=== PATIENT | female | born 1940 | race Caucasian/White ===

== ENCOUNTER 2017-01-06 09:37 | Outpatient (CLI) ==
[2016-10-05 16:26] VITALS: BMI 38.2
[2017-01-06] MEDS ORDERED: PROLIA SUBCUT STA (09:44)
[2017-01-06 09:51] VITALS: BP 163/83; TEMP 98.3
== END 2017-01-06 09:38 | disposition home or self-care (01) ==
LOC: OUTPT 09:37
PROVIDERS: ATTEND Family Medicine
DX: M81.0 Age-related osteoporosis without current pathological fracture (principal); Z78.0 Asymptomatic menopausal state
CPT/HCPCS: 96372

== ENCOUNTER 2017-02-10 08:10 | Outpatient (CLI) ==
[2016-10-05 16:26] VITALS: BMI 38.2
--- NOTE | 2017-02-10 09:18 | DEXA ---
EXAM: Bone Densitometry DEXA HISTORY: Osteoporosis COMPARISON: None FINDINGS: DEXA scan of the lumbar spine was performed. Quality of the study is good. Bone mineral density is 0.936 grams per square centimeter. T-score is negative 2.0. Z-score is negative 1.4. T-score L1 ve rtebral body is negative 3.4 and T score L2 vertebral body is negative 3.2 DEXA scan right and left hip was performed. Quality of the study is good. Bone mineral density alexandra n total is 0.908 grams per square centimeter. T-score is negative 0.8. Z-score is 0.1. Bone minera l density of the femoral neck mean is 0.828 with a T score of negative 1.5 and a Z score of negative 0.3. IMPRESSION: 1. Lumbar spine: Osteopenia. L1 and L2 vertebral bodies demonstrate osteoporosis 2. Right and left hip: Normal bone marrow density 3. Right and left femoral neck: Osteopenia 4. 10 year risk for major osteoporotic fracture is 17.4% and for hip fracture is 3.7%. Reference Values according to World Health Organization criteria: T score greater than -1 is normal T score -1 to -2.5 is osteopenia T score less than -2.5 is osteoporosis.
== END 2017-02-10 08:11 | disposition home or self-care (01) ==
LOC: RAD 08:10
PROVIDERS: ATTEND Family Medicine
DX: M81.0 Age-related osteoporosis without current pathological fracture (principal)

== ENCOUNTER 2018-03-05 09:13 | Outpatient (CLI) ==
[2016-10-05 16:26] VITALS: BMI 38.2
[2018-03-05] MEDS ORDERED: PROLIA SUBCUT STA (09:29)
[2018-03-05 09:33] VITALS: BP 150/86; TEMP 97.2
== END 2018-03-05 09:14 | disposition home or self-care (01) ==
LOC: OPMED 09:13
PROVIDERS: ATTEND Family Medicine
DX: M81.0 Age-related osteoporosis without current pathological fracture (principal)
CPT/HCPCS: 96372

== ENCOUNTER 2018-05-10 07:28 | Day surgery (SDC) | payer OTHER ==
[2016-10-05 16:26] VITALS: BMI 38.2
[2018-05-10] MEDS ORDERED: VERSED ONE (10:10)
[2018-05-10] MEDS ORDERED: DIPRIVAN 20 ML VIAL IVP ONE (10:10)
[2018-05-10 13:49] VITALS: BP 146/83; TEMP 97.4
--- NOTE | 2018-05-11 09:15 | OP ---
PROCEDURE: COLONOSCOPY TO THE CECUM. ENDOSCOPIST: Vinnie CRUZ M.D. INDICATION: HISTORY OF POLYPS INSTRUMENT: [employer]-[id number]. MEDICATION: PER ANESTHESIA. PROCEDURE: The patient was positioned for colonoscopy. The digital rectal exam was negative. The colonoscope was inserted through the anus and advanced to the cecum. The cecum was identified using the ileocecal valve and the appendiceal orifice as landmarks. The scope was slowly withdrawn through an adequately prepped colon. Selma Bowel Prep Score =9. Exam was essentially normal throughout. No evidence for polyp of mass. Retroflex exam was normal. Withdraw time 9 minutes and 10 seconds. PLAN: 1. Suggest repeat colonoscopy in 5 years. CC: Dr. Stout. VIKY
== END 2018-05-10 11:15 | disposition home or self-care (01) ==
LOC: SURG 07:28
PROVIDERS: ATTEND Internal Medicine Gastroenterology
DX: Z86.010 Personal history of colon polyps (principal)

== ENCOUNTER 2018-08-13 08:59 | Outpatient (CLI) | payer OTHER ==
[2016-10-05 16:26] VITALS: BMI 38.2
--- NOTE | 2018-08-14 10:56 | MRI ---
EXAM: Lumbar spine MRI without contrast. HISTORY: Acute midline low back pain without sciatica. COMPARISON: Lumbar spine CT scan 01/24/[address] abdomen and pelvis 05/08/2013. TECHNIQUE: Multiplanar, multisequence MR images were acquired of the lumbar spine without contrast. The study is degraded by lack of spatial and contrast resolution due to decreased [id number]. FINDINGS: Transitional spinal anatomy is present. Six non-rib bearing lumbar type vertebra are pres ent and these are numbered L1-L6. No comparison chest radiographs are available to allow counting of numbers of ribs. Conus medullaris ends at conus medullaris ends at L2-3 and has normal morphology a nd signal intensity. Canal diameter is developmentally narrow and there is epidural lipomatosis. Th ere is mild lumbar scoliosis, convex right at L3-4 and convex left at L5-6. There is a mild to moder ate chronic left anterior wedge compression deformity of L2 with biconcave endplates and there is mil d dorsal hypoplasia of the L5 and L6 vertebra. There is 2 mm degenerative anterolisthesis of L5 on S 1. Intrinsic bone marrow signal is normal. Benign intraosseous hemangiomas are present at L3, L4 an d L5. Small ventral and lateral osteophytes are present in the lumbar spine and there is desiccation of the intervertebral discs. The partially visualized liver, spleen, adrenal glands and kidneys are unremarkable. L1-2: There is a minor disc bulge and on the sagittal images there is a probable small central disc protrusion and annular tear that is not seen on the axial images. There is no central canal stenosis . Neural foramina are patent. L2-3: There is mild to moderate chronic left anterior wedging of L3 with 1 mm retropulsion of the L3 posterior superior cortex and the L2-3 intervertebral disc. This produces a minor disc bulge that m inimally effaces the thecal sac without central canal stenosis. Neural foramina are patent. L3-4: There is a diffuse disc bulge and a small right paracentral disc extrusion with inferior migra tion that narrows the right lateral recess and may adversely contact the right L4 nerve roots. Mild bilateral hypertrophic facet arthropathy and ligamentum flavum hypertrophy and prominent dorsal epidu ral fat is present. This causes moderate central canal stenosis and mild to moderate left and mild r ight neural foraminal stenosis. AP diameter of the thecal sac is 5.5 mm. L4-5: There is a diffuse disc bulge that is asymmetric to the left with a tiny central disc protrusi on. Minor bilateral facet arthropathy and mild ligamentum flavum hypertrophy is present. There is p rominent dorsal epidural fat and there is mild narrowing of the thecal sac and minor bilateral forami nal stenosis. AP diameter of the thecal sac is 6.6 mm. L5-6: There is a mild disc bulge that is asymmetric to the right which may encroach on the right L5 nerve exiting the neural foramen. There is a poorly visualized small broad-based central disc protru ewa, prominent dorsal epidural fat and mild left and moderate right hypertrophic facet arthropathy a nd moderate bilateral ligamentum flavum hypertrophy. There is tapering of the thecal sac at this lev el and the thecal sac is small and measures 3.4 mm in AP diameter. There is mild right and minor lef t neural foraminal stenosis. L6-S1: There is moderate tapering of the thecal sac at the mid L6 level due to epidural lipomatosis and the thecal sac ends at the top of S1. Moderate bilateral hypertrophic facet arthropathy and ligam entum flavum hypertrophy is present. There is a small left facet effusion. There is no central estrella l stenosis or foraminal stenosis. IMPRESSION: 1. Mild lumbar scoliosis, convex right and L3-4 and convex left at L5-6. 2. Moderate lumbar degenerative spondylosis and lower lumbar hypertrophic facet arthropathy. 3. Mild to moderate chronic left anterior wedge compression deformity L3. No acute compression frac tures. 4. Mild L4-5 and moderate L3-4 central canal stenosis and small thecal sac at L5-6 and L6, S1 due to tapering of the thecal sac and epidural lipomatosis. 5. Small right paracentral disc extrusion L3-4, tiny central disc protrusion L4-5 and a small broad- based central disc protrusion L5-6. 6. Six non-rib bearing lumbar type vertebra are present.
== END 2018-08-13 09:00 | disposition home or self-care (01) ==
LOC: RAD 08:59
PROVIDERS: ATTEND Family Medicine
DX: M54.5 Low back pain (principal)

== ENCOUNTER 2018-10-26 08:00 | Outpatient (RCR) ==
[2016-10-05 16:36] VITALS: BMI 38.2
== END 2018-11-15 23:59 ==
PROVIDERS: ATTEND Neurological Surgery
DX: M51.16 Intervertebral disc disorders with radiculopathy, lumbar region (principal); M25.551 Pain in right hip; M80.00XD Age-related osteoporosis with current pathological fracture, unspecified site, subsequent encounter for fracture with routine healing; M54.5 Low back pain

== ENCOUNTER 2018-11-12 | Outpatient (CLI) | END 2018-11-12 08:23 | disposition home or self-care (01) | DX: M81.0 Age-related osteoporosis without current pathological fracture (principal) | CPT/HCPCS: 96372 ==

== ENCOUNTER 2019-01-08 10:59 | Emergency (ER) ==
[2019-01-08 11:06] VITALS: BP 166/89; TEMP 98.7; BMI 36.4
--- NOTE | 2019-01-08 11:28 | ED.PDOC ---
General ED Provider: Dr. CHANTE TERAN Chief Complaint: Extremity Pain/Injury Stated Complaint: Patient is a 78 year old femal who comes ot he ER after a fall in the hallway at home while carring a load of laudry fell on to frames sustaining cuts and bruzes on the leg. Time Seen by Physician: 11:18 Mode of Arrival: Walk-In Information Source: Patient Exam Limitations: No limitations Primary Care Provider: YUMIKO RANDOLPH Nursing and Triage Documentation Reviewed and Agree: Yes Does patient meet sepsis criteria?: No System Inflammatory Response Syndrome: Not Applicable Sepsis Protocol: For patient's 13 years and over: Temp is 96.8 and below OR 101 and greater Pulse >90 BPM Resp >20/minute Acutely Altered Mental Status Are patient's symptoms suggestive of a new infection, such as: -Pneumonia -Skin, Soft Tissue -Endocarditis -UTI -Bone, Joint Infection -Implantable Device -Acute Abdominal Infection -Wound Infection -Meningitis -Blood Stream Catheter Infection -Unknown Skin Complaint Exam - Laceration/Lower Ext. Complaint/Exam Location of Injury: Left Mechanism of Injury: Laceration, Abrasion, Sharp trauma Onset/Duration: just prior to arrival Symptoms Are: Still present Initial Severity: Moderate Current Severity: Moderate Aggravating: Movement Alleviating: Compression Associated Signs and Symptoms: Denies: Fever, Chills, Erythema, Numbness, Tingling Lower Extremity Picture: 1 - abrasions noted Differential Diagnoses: Abrasion, Laceration Review of Systems - Review Of Systems Constitutional: Reports: No symptoms Eyes: Reports: No symptoms Ears, Nose, Mouth, Throat: Reports: No symptoms Respiratory: Reports: No symptoms Cardiac: Reports: No symptoms GI: Reports: No symptoms : Reports: No symptoms Musculoskeletal: Reports: Muscle pain (left leg ) Skin: Reports: Bruising Neurological: Reports: No symptoms Endocrine: Reports: No symptoms Hematologic/Lymphatic: Reports: No symptoms All Other Systems: Reviewed and Negative Past Medical History - Past Medical History Endocrine: Reports: DM 1 Cardiovascular: Reports: Hypertension Respiratory: Reports: Other Hematological: Reports: None Gastrointestinal: Reports: None Genitourinary: Reports: None Neuro/Psych: Reports: None Musculoskeletal: Reports: Arthritis Cancer: Reports: None Last Menstrual Period: menopause - Surgical History General Surgical History: Reports: Orthopedic (broken wrist, leg surgery left knee area many years ago. ), Hernia Repair, Other (Thyroid), Unknown - Family History Family History: Reports: Unknown - Social History Smoking Status: Never smoker Hx Substance Use: No Alcohol Screening: Occasionally - Immunizations Tetanus Shot up to Date: No Physical Exam - Physical Exam Appearance: Well-appearing, No pain distress, Well-nourished Eyes: ELVI, EOMI, Conjunctiva clear ENT: Ears normal, Nose normal, Oropharynx normal Respiratory: Airway patent, Breath sounds clear, Breath sounds equal, Respirations nonlabored Cardiovascular: RRR, Pulses normal, No rub, No murmur GI/: Soft, Nontender, No masses, Bowel sounds normal, No Organomegaly Musculoskeletal: Normal strength, ROM intact, No edema, No calf tenderness Skin: Warm, Dry, Normal color Neurological: Sensation intact, Motor intact, Reflexes intact, Cranial nerves intact, Alert, Oriented Psychiatric: Anxious Procedures - Laceration/Wound Repair left lower leg Wound Description: Irregular, Skin tear Wound Length (cm): 15 Wound Width: 10 Wound Depth: superficial Wound Explored: Clean Wound Irrigated: No Wound Prep: Hibiclens Wound Repaired With: Steri-strips (20) Sterile Dressing Applied?: Yes Splint Applied?: No Sling Applied?: No Critical Care Note - Critical Care Note Total Time (mins): 0 Course - Course Orders, Labs, Meds: Orders Category Date Time Status Diphth,Pertuss(Acell),Tet Vac [Boostrix] MEDS 01/08/19 11:28 Discontinued 0.5 ml IM .ONCE ONE Medications Discontinued Medications Generic Name Dose Route Start Last Admin Trade Name Freq PRN Reason Stop Dose Admin Diphtheria/Pertussis/Tetanus Vacc 0.5 ml 01/08/19 11:28 01/08/19 11:41 Boostrix IM 01/08/19 11:29 0.5 ml .ONCE ONE Administration Vital Signs: Temp Pulse Resp BP Pulse Ox 01/08/19 11:00 98.7 F 76 16 166/89 H 96 Departure - Departure Time of Disposition: 11:54 Disposition: HOME SELF-CARE Discharge Problem: Abrasion of lower leg Qualifiers: Encounter type: initial encounter Laterality: left Qualified Code(s): S80.641N - Abrasion, left lower leg, initial encounter Instructions: Tdap and Td Vaccines for Adults (ED), Abrasion (ED) Condition: Stable Pt referred to PMD for follow-up: Yes IPMP verified?: No Additional Instructions: Take Medications as prescribed for skin infection Follow up with PCP in 3 days. Prescriptions: Cephalexin [Keflex] 500 mg PO Q8HR #30 capsule Allergies/Adverse Reactions: Allergies No Known Allergies Allergy (Verified 01/08/19 11:07) Home Medications: Ambulatory Orders Calcium Carb/Vit D3/Minerals [Calcium 1,200 mg Tablet Chew] 1 each PO BID Denosumab [Prolia] 60 mg SQ DIRECTED 01/12/15 Fosinopril Sodium [Monopril] 20 mg PO BID 01/12/15 Insulin Detemir [Levemir Flextouch] 20 unit SQ BEDTIME 01/12/15 Metformin HCl 500 mg PO BID 01/12/15 Simvastatin 40 mg PO BEDTIME 01/12/15 Pantoprazole Sodium [Protonix] 40 mg PO DAILY 03/05/18 Levothyroxine Sodium [Synthroid] 1 tab PO DAILY 05/06/18 Cephalexin [Keflex] 500 mg PO Q8HR #30 capsule 01/08/19 Disposition Discussed With: Patient
[2019-01-08] MEDS: BOOSTRIX IM ONE (11:41)
== END 2019-01-08 12:02 | disposition home or self-care (01) ==
LOC: ED 10:59
DX: M79.662 Pain in left lower leg (principal); S81.822A Laceration with foreign body, left lower leg, initial encounter; W18.30XA Fall on same level, unspecified, initial encounter; Y93.9 Activity, unspecified
CPT/HCPCS: 90471; 90715; 99283

== ENCOUNTER 2019-01-16 23:40 | Emergency (ER) ==
[2019-01-17 00:03] VITALS: BP 160/78; TEMP 98.2; BMI 35.9
[2019-01-17] MEDS ORDERED: CLEOCIN PO STA (00:23)
--- NOTE | 2019-01-17 00:27 | ED.PDOC ---
General ED Provider: Dr. YUMIKO RANDOLPH-ER Chief Complaint: Wound Check Stated Complaint: i think i have an infection Time Seen by Physician: 00:25 Mode of Arrival: Walk-In Information Source: Patient Exam Limitations: No limitations Primary Care Provider: YUMIKO RANDOLPH Nursing and Triage Documentation Reviewed and Agree: Yes Does patient meet sepsis criteria?: No System Inflammatory Response Syndrome: Not Applicable Sepsis Protocol: For patient's 13 years and over: Temp is 96.8 and below OR 101 and greater Pulse >90 BPM Resp >20/minute Acutely Altered Mental Status Are patient's symptoms suggestive of a new infection, such as: -Pneumonia -Skin, Soft Tissue -Endocarditis -UTI -Bone, Joint Infection -Implantable Device -Acute Abdominal Infection -Wound Infection -Meningitis -Blood Stream Catheter Infection -Unknown Skin Complaint Exam - Skin/Soft Tissue Complaint/Exam Onset/Duration: a few days Symptoms Are: Still present Timing: Constant Initial Severity: Mild Current Severity: Mild Location: left leg Character: Reports: Redness, Swelling, Raised Aggravating: Reports: None Alleviating: Reports: None Associated Signs and Symptoms: Reports: Tenderness, Red streaks Related History: Reports: Recent trauma Related Surgical History: Reports: None Recent Exposure to Others w/Similar Symptoms: No Skin Findings: Present: Erythema Joint Tenderness Present: No Differential Diagnoses: Cellulitis Review of Systems - Review Of Systems Constitutional: Reports: No symptoms Eyes: Reports: No symptoms Ears, Nose, Mouth, Throat: Reports: No symptoms Respiratory: Reports: No symptoms Cardiac: Reports: No symptoms GI: Reports: No symptoms : Reports: No symptoms Musculoskeletal: Reports: No symptoms Skin: Reports: Rash Neurological: Reports: No symptoms Endocrine: Reports: No symptoms Hematologic/Lymphatic: Reports: No symptoms All Other Systems: Reviewed and Negative Past Medical History - Past Medical History Previously Healthy: No Endocrine: Reports: DM 1 Cardiovascular: Reports: Hypertension Respiratory: Reports: Other Hematological: Reports: None Gastrointestinal: Reports: None Genitourinary: Reports: None Neuro/Psych: Reports: None Musculoskeletal: Reports: Arthritis Cancer: Reports: None Last Menstrual Period: menopausal Other Pertinent Past Medical History: LEG SURGERY, THYROID, BROKEN WRIST, HERNIA , - Surgical History General Surgical History: Reports: Orthopedic (broken wrist, leg surgery left knee area many years ago. ), Hernia Repair, Other (Thyroid), Unknown - Family History Family History: Reports: Unknown - Social History Smoking Status: Never smoker Hx Substance Use: No Alcohol Screening: Occasionally - Immunizations Tetanus Shot up to Date: Yes (01/10/19) Physical Exam - Physical Exam Appearance: Well-appearing, No pain distress, Well-nourished Eyes: ELVI ENT: Ears normal, Nose normal, Oropharynx normal Neck: Supple Respiratory: Airway patent Cardiovascular: RRR, Pulses normal, No rub, No murmur GI/: Soft, Nontender, No masses, Bowel sounds normal, No Organomegaly Musculoskeletal: Normal strength, ROM intact, No edema, No calf tenderness Skin: Warm, Dry, Normal color Neurological: Sensation intact, Motor intact, Reflexes intact, Cranial nerves intact, Alert, Oriented Psychiatric: Affect appropriate, Mood appropriate Critical Care Note - Critical Care Note Total Time (mins): 0 Course - Course Orders, Labs, Meds: Orders Category Date Time Status Clindamycin HCl [Cleocin] MEDS 01/17/19 00:23 Stat 300 mg PO ONCE STA Vital Signs: Temp Pulse Resp BP Pulse Ox 01/16/19 23:49 98.2 F 86 18 160/78 H 96 Departure - Departure Time of Disposition: 00:26 Disposition: HOME SELF-CARE Discharge Problem: Cellulitis Qualifiers: Site of cellulitis: extremity Site of cellulitis of extremity: lower extremity Laterality: left Qualified Code(s): L03.116 - Cellulitis of left lower limb Instructions: Cellulitis (ED) Condition: Good Pt referred to PMD for follow-up: Yes IPMP verified?: No Additional Instructions: clindamycin 300mg qid x 7 days---bactroban ointmemnt apply bid ---see me for recheck Allergies/Adverse Reactions: Allergies No Known Allergies Allergy (Verified 01/17/19 00:03) Home Medications: Ambulatory Orders Calcium Carb/Vit D3/Minerals [Calcium 1,200 mg Tablet Chew] 1 each PO BID Denosumab [Prolia] 60 mg SQ DIRECTED 01/12/15 Fosinopril Sodium [Monopril] 20 mg PO BID 01/12/15 Insulin Detemir [Levemir Flextouch] 20 unit SQ BEDTIME 01/12/15 Metformin HCl 500 mg PO BID 01/12/15 Simvastatin 40 mg PO BEDTIME 01/12/15 Pantoprazole Sodium [Protonix] 40 mg PO DAILY 03/05/18 Levothyroxine Sodium [Synthroid] 1 tab PO DAILY 05/06/18 Cephalexin [Keflex] 500 mg PO Q8HR #30 capsule 01/08/19 Disposition Discussed With: Patient
== END 2019-01-17 00:47 | disposition home or self-care (01) ==
LOC: ED 23:40
DX: L03.116 Cellulitis of left lower limb (principal); E10.9 Type 1 diabetes mellitus without complications; I10 Essential (primary) hypertension; Z79.899 Other long term (current) drug therapy
CPT/HCPCS: 99282

== ENCOUNTER 2023-07-07 15:09 | Inpatient (IN) ==
[2023-07-07 15:59] VITALS: BMI 31.5
[2023-07-07 16:11] LABS: BASOPHILS % (AUTO) 0.3 % (0.0-3.0); EOSINOPHILS # (AUTO) 0.2 K/ul (0.0-0.7); EOSINOPHILS % (AUTO) 1.8 % (0.0-7.0); HEMATOCRIT 39.8 % (37.0-47.0); HEMOGLOBIN 12.8 g/dl (12.0-16.0); IMMATURE GRANULOCYTE % (AUTO) 0.3 % (0.0-5.0); LYMPHOCYTES # (AUTO) 2.1 K/uL (0.60-3.4); LYMPHOCYTES % (AUTO) 17.9 (10.0-50.0); MEAN CORPUSCULAR HEMOGLOBIN 28.4 pg (27.0-31.0); MEAN CORPUSCULAR HGB CONC 32.2 (31.8-35.4); MEAN CORPUSCULAR VOLUME 88.4 fl (81.0-99.0); NEUTROPHILS # (AUTO) 8.5 K/ul (2.0-6.9); NEUTROPHILS % (AUTO) 71.7 % (42.2-75.2); PLATELET COUNT 404 10^3/uL (140-440); RDW COEFFICIENT OF VARIATION 13.7 % (11.6-14.8); WHITE BLOOD COUNT 11.81 K/ul (4.6-10.2)
[2023-07-07] MEDS: NORCO 7.5-325 PO PRN ×2 (16:12→21:33)
[2023-07-07 16:29] LABS: ALBUMIN 4.05 g/dL (3.5-5.0); ALKALINE PHOSPHATASE 104.6 U/L (53-141); ASPARTATE AMINO TRANSFERASE 27.6 U/L (14-36); BILIRUBIN,TOTAL 0.92 mg/dL (0.2-1.3); BLOOD UREA NITROGEN 19.6 mg/dL (7-17); CALCIUM 9.37 mg/dL (8.4-10.2); CARBON DIOXIDE 26.3 mmol/L (22-30.0); CHLORIDE 95.3 mmol/L (98-107); CREATININE 0.71 mg/dL (0.60-1.30); GLUCOSE 120.4 mg/dL (74-106); POTASSIUM 4.52 mmol/L (3.5-5.1); SODIUM 132.3 mmol/L (134.5-145); TOTAL PROTEIN 7.22 g/dL (6.3-8.2)
[2023-07-07 16:37] LABS: SARS COV-2 RNA RAPID NAAT NEGATIVE (NEGATIVE)
[2023-07-07] MEDS ORDERED: PROLIA SUBCUT SCH (17:00)
--- NOTE | 2023-07-07 17:36 | DI ---
EXAM: FRONTAL VIEW OF THE CHEST. HISTORY: Hypertension, back pain. COMPARISON: None. FINDINGS: Atherosclerotic calcifications of the aorta. A few scattered calcified granulomas in the lungs and mediastinum. Normal heart size. Mild band-like scarring in the left mid lung and lingula. No acute airspace consolidation. No visible pleural effusion or pneumothorax. Chronic-appearing right sixth rib fracture. Bones appear demineralized. IMPRESSION: No acute process. Mild scarring in the left lung. Calcific atherosclerosis.
[2023-07-07] MEDS: ZOCOR PO SCH (20:44)
[2023-07-07] MEDS: CALCIUM 500 + VIT D 5 MCG (200 IU) TABLET PO SCH (20:45)
[2023-07-07] MEDS ORDERED: LEVEMIR SUBCUT SCH (21:00)
[2023-07-07] MEDS ORDERED: [UNRECOGNIZED DRUG - OTHER] PO SCH (21:00)
[2023-07-08] MEDS: PROTONIX PO SCH (05:48)
[2023-07-08] MEDS: SYNTHROID PO SCH ×2 (05:48)
[2023-07-08] MEDS ORDERED: SYNTHROID PO SCH (06:00)
[2023-07-08] MEDS: NORCO 7.5-325 PO PRN ×2 (06:11→09:07)
[2023-07-08] MEDS: CALCIUM 500 + VIT D 5 MCG (200 IU) TABLET PO SCH ×2 (08:58→20:07)
[2023-07-08] MEDS: LOVENOX SUBCUT SCH (08:59)
[2023-07-08] MEDS ORDERED: FOSINOPRIL 20 MG PO SCH (09:00)
[2023-07-08] MEDS ORDERED: MONOPRIL PO SCH (09:00)
--- NOTE | 2023-07-08 11:36 | RS.PTINEVL ---
Subjective Patient information Date of Evaluation: 07/08/23 Date of Arrival on Unit: 07/07/23 Admitted From:: Home ( currently staying with nephew and his , prior to falls lived alone) Diagnosis: intractable back pain, h/o falls, gait difficulty Usual Living Arrangement: With Others Living Arrangement Comments: normally lives alone, has been living with nephew since discharged after back surgery 06/15/23 Home Environment: House, Stairs (few) and No rail (has a grab bar ) Medical History: Hypertension, Diabetes and Arthritis Medical History Comments:: osteoporosis LATEX ALLERGY?: No Surgical History Comments:: subtotal thyroidectomy, kyphoplasty 06/12/23 Medications: see chart Subjective Information/ Patient Comments:: pt states that she has had several falls recently and underwent kyphoplasty 06/12/23. pt suffered a fall after going to nephew's home sliding off bed. pt states that her nephew and his do more for her than they should. Level of function Abilities prior to this admission: prior to surgery pt was living alone and independent with amb without AD, independent with ADL's. pt has required the use of rwx and assist with ADL's since having surgery. Current Level of Function: Partially Dependent Current Equipment Used at Home: rolling walker Pain Assessement Location lumbar area : Description: Dull and Aching Intensity: 4 Pain Alleviating Factors: Ice (ice pack placed on patient after eval.) and Medication Interventions Objective Patient Orientation: Person, Place, Time and Situation Observation: upon entering room pt asleep. pt is pleasant and answers most questions appropriately. Range of Motion ROM Right Upper Extremity AROM: WFL's Left Upper Extremity AROM: WFL's Right Lower Extremity AROM: WFL's Left Lower Extremity AROM: WFL's Muscle Strength Muscle Strength Right Upper Extremity: Mild Weakness (grossly 4/5 ) Left Upper Extremity: Mild Weakness (grossly 4/5 ) Right Lower Extremity: Mild Weakness (hip flex 4+/5, knee flex/ext 5/5, ankle DF/PF 4+/5) Left Lower Extremity: Mild Weakness (hip flex 4/5, knee flex/ext 5/5, ankle DF/PF 4+/5) Sensation Sensation Right Upper Extremity: Intact/Normal Left Upper Extremity: Intact/Normal Right Lower Extremity: Impaired (reports occasional radicular pain into R hip, none currently) Left Lower Extremity: Intact/Normal Palpation Palpation Findings: None/Normal Balance Sitting Balance and Reactions Static Sitting Balance: Good Dynamic Sitting Balance: Good Standing Balance and Reactions Static Standing Balance: Poor Dynamic Standing Balance: Poor Functional Mobility Bed Mobility Rolling R/L: Supervision Supine to Sit: Supervision Transfers Sit to Stand: CGA Stand to Sit: Supervision and CGA Safety Awareness Safety Awareness: Fair AILYN INDEX SCORE: n/a Ambulation Ambulation Assistive Device Used: Rolling Walker Orthotic/Prosthetic Device: No Distance: 140ft Assistance needed with Ambulation: CGA and 1 person assist Quality of Ambulation: pt amb with slight flexed posture, slight deviation from path. pt with slight SOA after amb. Factors Affecting Ambulation: Decreased Balance, Pain, Weakness, Decreased Coordination, Decreased Safety, Cognitive Status and Limited Endurance Treatment time Units charged Gait trainin Time with patient Length of Evaluation: 18 Total treatment time: 32 Patient Education Education Patient Education: Activity Modification and Education of Plan of Care Teaching Recipient: Patient Teaching Methods: Discussion Comments: discussion regarding POC Assessment Assessment Problem List:: Decreased level of function, Requires training/education, Decreased safety/Risk of falls, Weakness and Pain limits previous level of function Rehab Potential: Good Further Therapy Indicated?: Yes Candidate for Swing Bed for Therapy Services?: Feel pt may be too high level for swing bed for therapy. Evaluation Complexity: HISTORY: Medium, EXAM OF BODY SYSTEMS: Medium, CLINICAL PRESENTATION: Medium and CLINICAL DECISION MAKING: Medium Patient's Goal(s): Decrease low back pain and go back to my home Short Term Goals GOAL #1: pt demonstrate sup to/from sit independently. Goal to be met by: 07/10/23 GOAL #2: Sit to/from stand SBA Goal to be met by: 07/10/23 GOAL #3: pt amb with rwx 150ft with SBA to CGA no LOB Goal to be met by: 07/10/23 GOAL #4: Improve dyn stand balance fair- Goal to be met by: 07/10/23 GOAL #5: pt independent with rolling and scooting in bed. Goal to be met by: 07/10/23 [place] Goals GOAL #1: Transfer sit to/from stand independently Goal to be met by: 07/12/23 GOAL #2: pt amb functional household distances with rwx SBA to independent Goal to be met by: 07/12/23 GOAL #3: Improve dyn stand balance fair Goal to be met by: 07/12/23 Plan Plan of Care: Therapeutic EX and Therapeutic Activity Other:: gait training Frequency of Treatment: 1-2 X day, as tolerated Duration of Treatment: 4-5 days Anticipated Discharge Destination: Home Treatment Diagnosis (ICD 10 Codes): impaired balance R 26.81 difficulty walking R 26.2 weakness M62.81 LBP M54.5 Has the Physician been added for Co-signature?: Yes
[2023-07-08] MEDS ORDERED: ZOFRAN 4 MG/2 ML IVP PRN (11:37)
--- NOTE | 2023-07-08 12:05 | RS.OTINEVL ---
Subjective Patient information Date of Evaluation: 07/08/23 Date of Arrival on Unit: 07/07/23 Admitted From:: Home ( currently staying with nephew and his , prior to falls lived alone) Diagnosis: Intractable back pain. PRECAUTIONS: Fall risk. Usual Living Arrangement: With Others Living Arrangement Comments: normally lives alone, has been living with nephew since discharged after back surgery 06/15/23. Home Environment: House, Stairs (few) and No rail (has a grab bar ) Medical History: Hypertension, Diabetes and Arthritis Medical History Comments:: osteoporosis Surgical History Comments:: Subtotal Thyroidectomy 1975 Subjective Information/ Patient Comments:: Pt reports, that her help probably does more for me than they should. 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 Pt can sit Independently. Pt completed sit to stand CGA. Pt has full AROM of BUE. Pt transfers with RW CGA. 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 Sensation Right Upper Extremity: Intact/Normal Left Upper Extremity: Intact/Normal Balance Sitting Balance Static Sitting Balance: Good Dynamic Sitting Balance: Good Standing Balance Static Standing Balance: Fair Dynamic Standing Balance: Fair ADL Skills Bathing Bathing UE: Min Assist Bathing LE: Min Assist Bathing Set-up: Shower Comments:: Will need to sit. Dressing Dressing UE: Independent Dressing LE: Min Assist Toilet Management Toilet Hygiene: Independent Toilet Clothing Management: CGA Functional Mobility Bed Mobility Rolling R/L: Independent Scooting: Independent Supine to Sit: Independent Transfers Sit to Stand: CGA Stand to Sit: CGA Stand Pivot Transfers: CGA Ambulation Weight Bearing Status: FWB Assistive Device Used: Rolling Walker Assistance needed with Ambulation: CGA Safety Awareness Safety Awareness: Good AILYN INDEX SCORE: . Additional Treatment Performed Time with patient Length of Evaluation: 17 Total treatment time: 20 Activities Do you enjoy playing games?: Yes Would you be interested in leaving your room for activities?: Yes Would you enjoy group activities?: Yes Do you have difficulty with your vision?: Yes Patient Interests:: Watching Television and Visiting/Socializing Patient Education Patient Education: Education of diagnosis, Home Safety and Education of Plan of Care Teaching Recipient: Patient Teaching Methods: Discussion and Demonstration Assessment Problem List:: Weakness Rehab Potential: Good Further Therapy Indicated?: Yes Evaluation Complexity: HISTORY: Medium, EXAM OF BODY SYSTEMS: Medium and CLINICAL DECISION MAKING: Medium Patient's Goal(s): To be able to return to her home. Short Term Goals Goals GOAL 1: Pt to increase dyn. std. bal. to F+. Goal to be met by: 07/10/23 GOAL 2: Pt to complete grooming tasks at sink with RW. Goal to be met by: 07/10/23 GOAL 3: Pt to increase Activity tolerance to 15 minutes for safety of ADLS. Goal to be met by: 07/10/23 Retirement Goals GOAL 1: Pt to increase dyn. std. bal. to G- Goal to be met by: 07/13/23 GOAL 2: Pt to increase to Independent with all ADLs. Goal to be met by: 07/13/23 GOAL 3: Pt to increase activity tolerance to 20 minutes for cooking tasks at home. Goal to be met by: 07/13/23 Plan Plan of Care: Therapeutic EX, Therapeutic Activity and Self-Care/Home Management Frequency of Treatment: 1-2 X day, as tolerated Duration of Treatment: 5 days Anticipated Discharge Destination: Home Treatment Diagnosis (ICD 10 Codes): Weakness R53.1, Z74.1 Need for assistance with personal care. Has the Physician been added for Co-signature?: Yes
[2023-07-08] MEDS: MORPHINE 2 MG/ML SYRINGE IVP PRN ×2 (14:40→20:05)
--- NOTE | 2023-07-08 17:22 | PCM ---
Chief Complaint Chief Complaint: im really hurting in my back History of Present Illness History of Present Illness: This is an 83 yr old lady with hx of dm who recently underwent kyphoplasty for L1 compression fx. Since the surgery she has had increasing pain and the healing has been complexed by wound infection followed by wound care.She notes increasing low back paIn not always helped with oral pain meds. Her appetite has been varied to poor at times. Review of Systems Constitutional: Reports No symptoms Eyes: Reports No symptoms Ears: Reports No symptoms Respiratory: Reports No symptoms Cardiovascular: Reports No symptoms Gastrointestinal: Reports No symptoms Genitourinary: Reports No symptoms Neurological: Reports Numbness, Weakness and Problems with walking Musculoskeletal: Reports No symptoms Skin: Reports No symptoms Immunology: Reports No symptoms Hematology: Reports No symptoms Endocrine: Reports No symptoms Psychiatric: Reports Depression Habits: Denies Tobacco use, Substance use, Alcohol use or Other Allergies Allergies Allergy/AdvReac Type Severity Reaction Status Date / Time No Known Allergies Allergy Verified 07/08/23 17:19 [facility] Medical History Adenomatous colon polyp D12.6 - Benign neoplasm of colon, unspecified (ICD-10) Astigmatism H52.209 - Unspecified astigmatism, unspecified eye (ICD-10) 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 - Cystoid macular degeneration, unspecified eye (ICD-10) Diabetes E11.9 - Type 2 diabetes mellitus without complications (ICD-10) Diffuse cystic mastopathy N60.19 - Diffuse cystic mastopathy of unspecified breast (ICD-10) Diverticulosis K57.90 - Diverticulosis of intestine, part unspecified, without perforation or abscess without bleeding (ICD-10) Dry eye syndrome H04.129 - Dry eye syndrome of unspecified lacrimal gland (ICD-10) Epiretinal membrane H35.379 - Puckering of macula, unspecified eye (ICD-10) Hammer toe of left foot M20.42 - Other hammer toe(s) (acquired), left foot (ICD-10) Hyperlipidemia E78.5 - Hyperlipidemia, unspecified (ICD-10) Hypothyroidism E03.9 - Hypothyroidism, unspecified (ICD-10) Joint swelling M25.40 - Effusion, unspecified joint (ICD-10) 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 - Intervertebral disc disorders with radiculopathy, lumbar region (ICD-10) Lumbar stenosis M48.061 - Spinal stenosis, lumbar region without neurogenic claudication (ICD-10) Onychomycosis B35.1 - Tinea unguium (ICD-10) 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 - Drusen of optic disc, unspecified eye (ICD-10) Osteoporosis M81.0 - Age-related osteoporosis without current pathological fracture (ICD- 10) Pseudophakia Z96.1 - Presence of intraocular lens (ICD-10) Right hip pain M25.551 - Pain in right hip (ICD-10) Tinnitus H93.19 - Tinnitus, unspecified ear (ICD-10) Social History Smoking and tobacco status: Never smoker Alcohol intake: former Medications Medications: Medications Generic Name Dose Route Start Last Admin Trade Name Freq PRN Reason Stop Dose Admin Hydrocodone Bitart/Acetaminophen 1 tab 07/07/23 15:35 07/08/23 09:07 Hydrocodone Bit/Acetaminophen 7.5/325 Mg Tablet PO 1 tab Q6HR PRN Administration Moderate to severe pain Calcium/Vitamin D 1 each 07/07/23 21:00 07/08/23 08:58 Calcium Carbonate/Vitamin D3 500 Mg/5 Mcg(200iu) 1 Each Tablet PO 1 each BID ALONZO Administration Enoxaparin Sodium 40 mg 07/08/23 09:00 07/08/23 08:59 Enoxaparin Sodium 40 Mg/0.4 Ml Syr SUBCUT 40 mg DAILY ALONZO Administration Insulin Detemir 40 unit 07/07/23 21:00 07/07/23 20:45 Insulin Detemir 100 Units/Ml SUBCUT 40 unit BEDTIME ALONZO Administration Levothyroxine Sodium 100 mcg 07/08/23 06:00 07/08/23 05:48 Levothyroxine Sodium 100 Mcg Tablet PO 100 mcg 0600 ALONZO Administration Levothyroxine Sodium 50 mcg 07/08/23 06:00 07/08/23 05:48 Levothyroxine Sodium 50 Mcg Tablet PO 50 mcg 0600 ALONZO Administration Morphine Sulfate 1 - 2 mg 07/08/23 11:37 07/08/23 14:40 Morphine Sulfate 2 Mg/Ml Syringe IVP 1 mg Q4H PRN Administration Pain Non-Formulary Medication 20 mg 07/08/23 09:00 07/08/23 09:51 Fosinopril PO 20 mg BID ALONZO Administration Ondansetron HCl 4 mg 07/08/23 11:37 Ondansetron Hcl/Pf 4 Mg/2 Ml Sdv IVP Q4H PRN Nausea / Vomiting Pantoprazole Sodium 40 mg 07/08/23 06:00 07/08/23 05:48 Pantoprazole Sodium 40 Mg Tablet.Dr PO 40 mg 0600 ALONZO Administration Simvastatin 40 mg 07/07/23 21:00 07/07/23 20:44 Simvastatin 40 Mg Tablet PO 40 mg BEDTIME ALONZO Administration Body Composition Height: 5 ft 6 in Weight: 195 lb Body Mass Index (BMI): 31.5 Vital Signs Temperature: 98.1 F Pulse Rate: 84 Respiratory Rate: 16 Blood Pressure: 160/93 O2 Sat by Pulse Oximetry: 98 Physical Examination Appearance: Reports Well-appearing and Obese Ill-appearing: None Pain Distress: Moderate Eyes: Reports ELVI, EOMI and Conjunctiva clear ENT: Reports Ears normal, Nose normal and Oropharynx normal Neck: Supple Respiratory: Reports Airway patent, Breath sounds clear and Breath sounds equal Cardiovascular: Reports RRR, Pulses normal, No rub and No murmur GI/: Reports Soft, Nontender, No masses, Bowel sounds normal and No Organomegaly Musculoskeletal: Reports Normal strength, ROM intact, No edema, No calf tenderness and Limited ROM Skin: Reports Warm, Dry and Normal color Neurological: Reports Sensation intact, Motor intact, Reflexes intact, Cranial nerves intact, Alert and Oriented Psychiatric: Reports Affect appropriate and Mood appropriate Lab/Tests/Diagnostic Imaging Lab/Tests/Diagnostic Imaging: Lab Review 07/07/23 07/07/23 15:40 16:05 WBC 11.81 H RBC 4.50 Hgb 12.8 Hct 39.8 MCV 88.4 MCH 28.4 MCHC 32.2 RDW Coeff of Walker 13.7 Plt Count 404 Immature Gran % (Auto) 0.3 Neut % (Auto) 71.7 Lymph % (Auto) 17.9 Darke % (Auto) 8.0 Eos % (Auto) 1.8 Baso % (Auto) 0.3 Neut # (Auto) 8.5 H Lymph # (Auto) 2.1 Darke # (Auto) 1.0 Eos # (Auto) 0.2 Baso # (Auto) 0.0 Immature Gran # (Auto) 0.0 Sodium 132.3 L Potassium 4.52 Chloride 95.3 L Carbon Dioxide 26.3 Anion Gap 15.22 BUN 19.6 H Creatinine 0.71 Estimated GFR (MDRD) 79.00 BUN/Creatinine Ratio 27.60 Glucose 120.4 H Calcium 9.37 Total Bilirubin 0.92 AST 27.6 ALT 27.0 Alkaline Phosphatase 104.6 Total Protein 7.22 Albumin 4.05 Globulin 3.17 Albumin/Globulin Ratio 1.27 SARS CoV-2 RNA Rapid CHAIM Negative Orders Category Date Time Status ADMIT PATIENT INPATIENT .TO MEDSURG (NON-MONITORED ADMISSION 07/07/23 15:29 Active BED) EKG-(IP & OP ONLY) Stat CARDIO 07/07/23 15:29 Completed BLOOD GLUCOSE MONITORING (MED/SURG) 0630,1700 CARE 07/07/23 15:39 Active Notify RT of Treatment ONCE CARE 07/07/23 15:31 Active URINALYSIS COLLECTION (NURSING) ONCE CARE 07/07/23 15:29 Active Wound Care [INCISION/WOUND CARE] EVERY OTHER DAY CARE 07/08/23 18:00 Active CONSISTENT CARBS DIET DIETARY 07/08/23 Breakfast Ordered HS SNACK DIETARY 07/08/23 Dinner Ordered CONSULT PERCUSSION TEACHER ONCE PERCUSSION TEACHER 07/07/23 16:00 Active CBC W/ AUTO DIFF Stat LAB 07/07/23 16:05 Completed CMP [COMPREHENSIVE METABOLIC PANEL] Stat LAB 07/07/23 16:05 Completed SARS COV-2 RNA RAPID CHAIM Stat LAB 07/07/23 15:40 Completed URINE CULTURE Routine LAB 07/07/23 15:29 Received Calcium Carbonate/Vitamin D3 [Calcium 500 + Vit D 5 Mcg Meds 07/07/23 21:00 Active (200 Iu) Tablet] 1 each PO BID Enoxaparin Sodium [Lovenox] Meds 07/08/23 09:00 Active 40 mg SUBCUT DAILY Hydrocodone Bit/Acetaminophen [Humphrey 7.5-325] Meds 07/07/23 15:35 Active 1 tab PO Q6HR PRN Insulin Detemir [Levemir] Meds 07/07/23 21:00 Active 40 unit SUBCUT BEDTIME Levothyroxine Sodium [Synthroid] Meds 07/08/23 06:00 Active 100 mcg PO 0600 Levothyroxine Sodium [Synthroid] Meds 07/08/23 06:00 Discontinued 150 mcg PO 0600 Levothyroxine Sodium [Synthroid] Meds 07/08/23 06:00 Active 50 mcg PO 0600 Morphine Sulfate [Morphine 2 mg/ml Syringe] Meds 07/08/23 11:37 Active 1 - 2 mg IVP Q4H PRN Ondansetron HCl/Pf [Zofran 4 mg/2 ml] Meds 07/08/23 11:37 Active 4 mg IVP Q4H PRN Pantoprazole Sodium [Protonix] Meds 07/08/23 06:00 Active 40 mg PO 0600 Simvastatin [Zocor] Meds 07/07/23 21:00 Active 40 mg PO BEDTIME fosinopril Meds 07/08/23 09:00 Active 20 mg PO BID RESUSCITATION STATUS Routine OTHERS 07/07/23 16:00 Ordered CHEST, 1V AP ONLY Stat RADS 07/07/23 15:29 Completed OT CONSULTATION Routine THERAPIES 07/07/23 13:09 Completed OT CONSULTATION Routine THERAPIES 07/08/23 09:30 Completed OT EVALUATION Routine THERAPIES 07/08/23 11:19 Completed PT CONSULT Routine THERAPIES 07/07/23 16:17 Completed PT CONSULT Routine THERAPIES 07/07/23 16:18 Completed PT INPATIENT EVALUATION Routine THERAPIES 07/08/23 16:18 Completed SPEECH CONSULT Routine THERAPIES 07/08/23 Ordered Medications Generic Name Dose Route Start Last Admin Trade Name Freq PRN Reason Stop Dose Admin Hydrocodone Bitart/Acetaminophen 1 tab 07/07/23 15:35 07/08/23 09:07 Hydrocodone Bit/Acetaminophen 7.5/325 Mg Tablet PO 1 tab Q6HR PRN Administration Moderate to severe pain Calcium/Vitamin D 1 each 07/07/23 21:00 07/08/23 08:58 Calcium Carbonate/Vitamin D3 500 Mg/5 Mcg(200iu) 1 Each Tablet PO 1 each BID ALONZO Administration Enoxaparin Sodium 40 mg 07/08/23 09:00 07/08/23 08:59 Enoxaparin Sodium 40 Mg/0.4 Ml Syr SUBCUT 40 mg DAILY ALONZO Administration Insulin Detemir 40 unit 07/07/23 21:00 07/07/23 20:45 Insulin Detemir 100 Units/Ml SUBCUT 40 unit BEDTIME ALONZO Administration Levothyroxine Sodium 100 mcg 07/08/23 06:00 07/08/23 05:48 Levothyroxine Sodium 100 Mcg Tablet PO 100 mcg 0600 ALONZO Administration Levothyroxine Sodium 50 mcg 07/08/23 06:00 07/08/23 05:48 Levothyroxine Sodium 50 Mcg Tablet PO 50 mcg 0600 ALONZO Administration Morphine Sulfate 1 - 2 mg 07/08/23 11:37 07/08/23 14:40 Morphine Sulfate 2 Mg/Ml Syringe IVP 1 mg Q4H PRN Administration Pain Non-Formulary Medication 20 mg 07/08/23 09:00 07/08/23 09:51 Fosinopril PO 20 mg BID ALONZO Administration Ondansetron HCl 4 mg 07/08/23 11:37 Ondansetron Hcl/Pf 4 Mg/2 Ml Sdv IVP Q4H PRN Nausea / Vomiting Pantoprazole Sodium 40 mg 07/08/23 06:00 07/08/23 05:48 Pantoprazole Sodium 40 Mg Tablet.Dr PO 40 mg 0600 ALONZO Administration Simvastatin 40 mg 07/07/23 21:00 07/07/23 20:44 Simvastatin 40 Mg Tablet PO 40 mg BEDTIME ALONZO Administration Discontinued Medications Generic Name Dose Route Start Last Admin Trade Name Freq PRN Reason Stop Dose Admin Levothyroxine Sodium 150 mcg 07/08/23 06:00 Levothyroxine Sodium 100 Mcg Tablet PO 0600 ALONZO Assessment (1) Age-related osteoporosis with current pathological fracture: Status: Acute Code(s): M80.00XA - Age-related osteoporosis with current pathological fracture, unspecified site, initial encounter for fracture SNOMED Code(s): 570456325 Qualifiers: Encounter type: subsequent encounter Fracture healing: with routine healing Qualified Code(s): M80.00XD - Age-related osteoporosis with current pathological fracture, unspecified site, subsequent encounter for fracture with routine healing (2) Low back pain: Status: Acute Code(s): M54.5 - Low back pain SNOMED Code(s): 966092469 Qualifiers: Chronicity: chronic Back pain laterality: right Sciatica presence: without sciatica Qualified Code(s): M54.5 - Low back pain; G89.29 - Other chronic pain Plan Plan: willl ask physical therapy to assess---adding iv morphine for pain control---monitor fsbs and dvt prophylaxis---see orders
[2023-07-08] MEDS: ZOCOR PO SCH (20:07)
[2023-07-09 05:14] LABS: BASOPHILS # (AUTO) 0.1 K/uL (0-0.2); BASOPHILS % (AUTO) 0.5 % (0.0-3.0); EOSINOPHILS # (AUTO) 0.3 K/ul (0.0-0.7); EOSINOPHILS % (AUTO) 2.8 % (0.0-7.0); HEMATOCRIT 41.8 % (37.0-47.0); HEMOGLOBIN 12.9 g/dl (12.0-16.0); IMMATURE GRANULOCYTE % (AUTO) 0.3 % (0.0-5.0); LYMPHOCYTES # (AUTO) 2.1 K/uL (0.60-3.4); LYMPHOCYTES % (AUTO) 20.4 (10.0-50.0); MEAN CORPUSCULAR HEMOGLOBIN 28.2 pg (27.0-31.0); MEAN CORPUSCULAR HGB CONC 30.9 (31.8-35.4); MEAN CORPUSCULAR VOLUME 91.3 fl (81.0-99.0); MONOCYTES # (AUTO) 0.8 K/uL (0.4-2.0); MONOCYTES % (AUTO) 7.8 (0-10); NEUTROPHILS # (AUTO) 6.9 K/ul (2.0-6.9); NEUTROPHILS % (AUTO) 68.2 % (42.2-75.2); PLATELET COUNT 363 10^3/uL (140-440); RDW COEFFICIENT OF VARIATION 13.5 % (11.6-14.8); RED BLOOD COUNT 4.58 10^6/ul (4.20-5.40); WHITE BLOOD COUNT 10.14 K/ul (4.6-10.2)
[2023-07-09 05:28] LABS: ALANINE AMINOTRANSFERASE 25.5 U/L (0-35); ALBUMIN 4.04 g/dL (3.5-5.0); BILIRUBIN,TOTAL 1.17 mg/dL (0.2-1.3); BLOOD UREA NITROGEN 10.5 mg/dL (7-17); CALCIUM 9.71 mg/dL (8.4-10.2); CARBON DIOXIDE 33.9 mmol/L (22-30.0); CHLORIDE 93.3 mmol/L (98-107); CREATININE 0.54 mg/dL (0.60-1.30); GLUCOSE 144.4 mg/dL (74-106); POTASSIUM 4.17 mmol/L (3.5-5.1); SODIUM 134.4 mmol/L (134.5-145); TOTAL PROTEIN 7.05 g/dL (6.3-8.2)
[2023-07-09] MEDS: SYNTHROID PO SCH ×2 (05:32)
[2023-07-09] MEDS: PROTONIX PO SCH (05:32)
[2023-07-09] MEDS: LEVEMIR SUBCUT SCH (07:46)
[2023-07-09] MEDS: LOVENOX SUBCUT SCH (09:01)
[2023-07-09] MEDS: CALCIUM 500 + VIT D 5 MCG (200 IU) TABLET PO SCH ×2 (09:01→20:21)
[2023-07-09] MEDS: NORCO 7.5-325 PO PRN ×2 (11:06→18:26)
--- NOTE | 2023-07-09 17:12 | PCM.PROG ---
Date Seen by Provider: 07/09/23 Time Seen by Provider: 17:07 Subjective: the patient feels the morphine is working better for her back pain, she says she is participating in physical therapy and feels its helping her to get stronger. No nursing staff concerns voiced . Objective: Vitals: T=97.8 F, P=98, R=18, VB=508/95, SPO2=95 HEENT: [] Neck: [supple] Lungs: [clear] CVS: [rrr] Abdomen: [soft nt bs+] Extremities: [no edema ] Neurological: intact[] Skin: [no rashes] Lab/Tests/Diagnostic Imaging: [cbc and cmp reviewed] (1) Age-related osteoporosis with current pathological fracture: Status: Acute Code(s): M80.00XA - Age-related osteoporosis with current pathological fracture, unspecified site, initial encounter for fracture SNOMED Code(s): 543773766 (2) Low back pain: Status: Acute Code(s): M54.5 - Low back pain SNOMED Code(s): 907376343 Plan: she says her blood sugars are "doing fine"--i feel the patient would benefit from the swing bed program in continuing to strengthen the patient through therapy and work toward being able to complete her activities of daily living. will monitor her pain response with the goal of changing to oral pain meds as well as monitor blood glucose levels.
[2023-07-09] MEDS: ZOCOR PO SCH (20:21)
[2023-07-10] MEDS: PROTONIX PO SCH (05:36)
[2023-07-10] MEDS: SYNTHROID PO SCH ×2 (05:36)
[2023-07-10] MEDS: LEVEMIR SUBCUT SCH (07:49)
[2023-07-10] MEDS: CALCIUM 500 + VIT D 5 MCG (200 IU) TABLET PO SCH ×2 (08:09→20:05)
[2023-07-10] MEDS: LOVENOX SUBCUT SCH (08:10)
[2023-07-10] MEDS: NORCO 7.5-325 PO PRN ×2 (09:49→19:25)
--- NOTE | 2023-07-10 16:54 | PCM.PROG ---
Date Seen by Provider: 07/10/23 Time Seen by Provider: 16:52 Subjective: im moving along--no nursing staff concens---fsbs have been acceptable Objective: Vitals: T=97.2 F, P=94, R=22, GN=813/85, SPO2=96 HEENT: [] Neck: [supple] Lungs: [clear] CVS: [rrr] Abdomen: [soft nt bs] Extremities: [] Neurological: [intact] Skin: [] Lab/Tests/Diagnostic Imaging: [] (1) Age-related osteoporosis with current pathological fracture: Status: Acute Code(s): M80.00XA - Age-related osteoporosis with current pathological fracture, unspe cified site, initial encounter for fracture SNOMED Code(s): 743548819 (2) Low back pain: Status: Acute Code(s): M54.5 - Low back pain SNOMED Code(s): 753437546 Plan: will plan on discharging to swing bed to Hospitalist service--pain control, therapy, monitoring fsbs and dvt prophlyxis
--- NOTE | 2023-07-10 16:59 | PCM.DC ---
Final Diagnosis: intactable lower back pain Debility Weakness of lower extremities Physical Exam Appearance: Well-appearing Ill-appearing: None Pain Distress: Mild Eyes: ELVI, EOMI and Conjunctiva clear ENT: Ears normal, Nose normal and Oropharynx normal Neck: Supple Respiratory: Airway patent, Breath sounds clear and Breath sounds equal Cardiovascular: RRR, Pulses normal, No rub and No murmur GI/: Soft, Nontender, No masses, Bowel sounds normal and No Organomegaly Musculoskeletal: No edema, Limited ROM and Limited strength Skin: Warm, Dry and Normal color Neurological: Sensation intact, Motor intact, Reflexes intact, Cranial nerves intact, Alert and Oriented Psychiatric: Affect appropriate and Mood appropriate (1) Age-related osteoporosis with current pathological fracture: Status: Acute Code(s): M80.00XA - Age-related osteoporosis with current pathological fracture, unspecified site, initial encounter for fracture SNOMED Code(s): [id number] Qualifiers: Encounter type: subsequent encounter Fracture healing: with routine healing Qualified Code(s): M80.00XD - Age-related osteoporosis with current pathological fracture, unspecified site, subsequent encounter for fracture with routine healing (2) Low back pain: Status: Acute Code(s): M54.5 - Low back pain SNOMED Code(s): 404068146 Qualifiers: Chronicity: chronic Back pain laterality: right Sciatica presence: without sciatica Qualified Code(s): M54.5 - Low back pain; G89.29 - Other chronic pain Reason for Hospitalization: weakness of lower extremities, debility, intractable lower back pain Prognosis/Condition at Discharge: good Medications at Discharge: see summary Lab/Diagnostics: noted in summary Follow-ups: 2 weeks with me after discharge Discharge Disposition: Discharge Acute, Admit TCU Hospital Course: she did fairly well during stay, participated in therapy and pain was controlled, fsbs were not problematic Plan: swing bed to the hospitalist
[2023-07-10] MEDS: ZOCOR PO SCH (20:05)
[2023-07-11] MEDS: PROTONIX PO SCH (05:31)
[2023-07-11] MEDS: SYNTHROID PO SCH ×2 (05:32)
[2023-07-11 06:04] VITALS: PULSE 89; TEMP 97.5
[2023-07-11] MEDS: NORCO 7.5-325 PO PRN (06:12)
[2023-07-11 06:25] VITALS: BP 142/76
[2023-07-11] MEDS: LEVEMIR SUBCUT SCH (07:19)
[2023-07-11] MEDS: CALCIUM 500 + VIT D 5 MCG (200 IU) TABLET PO SCH (08:37)
[2023-07-11] MEDS: LOVENOX SUBCUT SCH (08:37)
[2023-07-11 09:13] LABS: BASOPHILS # (AUTO) 0.1 K/uL (0-0.2); BASOPHILS % (AUTO) 0.5 % (0.0-3.0); EOSINOPHILS # (AUTO) 0.3 K/ul (0.0-0.7); EOSINOPHILS % (AUTO) 2.8 % (0.0-7.0); HEMATOCRIT 40.3 % (37.0-47.0); HEMOGLOBIN 12.5 g/dl (12.0-16.0); IMMATURE GRANULOCYTE # (AUTO) 0.1 (0.0-1.0); IMMATURE GRANULOCYTE % (AUTO) 0.5 % (0.0-5.0); LYMPHOCYTES % (AUTO) 19.8 (10.0-50.0); MEAN CORPUSCULAR HEMOGLOBIN 28.2 pg (27.0-31.0); MEAN CORPUSCULAR VOLUME 90.8 fl (81.0-99.0); MONOCYTES # (AUTO) 0.8 K/uL (0.4-2.0); MONOCYTES % (AUTO) 7.4 (0-10); PLATELET COUNT 360 10^3/uL (140-440); RDW COEFFICIENT OF VARIATION 13.3 % (11.6-14.8); RED BLOOD COUNT 4.44 10^6/ul (4.20-5.40); WHITE BLOOD COUNT 10.08 K/ul (4.6-10.2)
[2023-07-11 09:29] VITALS: RESP 18
[2023-07-11 09:32] LABS: ALANINE AMINOTRANSFERASE 29.1 U/L (0-35); ALBUMIN 3.75 g/dL (3.5-5.0); ALKALINE PHOSPHATASE 92.6 U/L (53-141); ASPARTATE AMINO TRANSFERASE 27.4 U/L (14-36); BILIRUBIN,TOTAL 0.94 mg/dL (0.2-1.3); BLOOD UREA NITROGEN 10.8 mg/dL (7-17); CALCIUM 9.46 mg/dL (8.4-10.2); CARBON DIOXIDE 29.2 mmol/L (22-30.0); CHLORIDE 95.7 mmol/L (98-107); CREATININE 0.59 mg/dL (0.60-1.30); GLUCOSE 162.1 mg/dL (74-106); POTASSIUM 4.48 mmol/L (3.5-5.1); SODIUM 132.6 mmol/L (134.5-145); TOTAL PROTEIN 6.49 g/dL (6.3-8.2)
== END 2023-07-11 10:20 | disposition swing bed (61) | DRG 552 ==
LOC: MEDSURG B 15:09
PROVIDERS: ADMIT Family Medicine; ATTEND Family Medicine
DX: G89.29 Other chronic pain; Z98.890 Other specified postprocedural states; R29.6 Repeated falls; Z20.822 Contact with and (suspected) exposure to COVID-19; E78.5 Hyperlipidemia, unspecified; I10 Essential (primary) hypertension; M54.50 Low back pain, unspecified; R53.1 Weakness; E11.65 Type 2 diabetes mellitus with hyperglycemia; R26.81 Unsteadiness on feet; E03.9 Hypothyroidism, unspecified; M80.00XD Age-related osteoporosis with current pathological fracture, unspecified site, subsequent encounter for fracture with routine healing; M62.81 Muscle weakness (generalized)